=== PATIENT | male | born 1980 | race Hispanic/Latino ===

== ENCOUNTER 2024-08-23 16:56 | Emergency (ER) | payer OTHER ==
[~2024-08-23] VITALS: Ht 188 cm; Wt 113.4 kg
[2024-08-23] MEDS ORDERED: ONDANSETRON HCL 4 MG ORAL DISINTEGRATING TAB PO STA (18:30)
[2024-08-23] MEDS ORDERED: KETOROLAC TROMETHAMINE 60 MG/2 ML VIAL ONE (18:38)
[2024-08-23] MEDS: KETOROLAC TROMETHAMINE 60 MG/2 ML VIAL IM STA (18:43)
[2024-08-23 18:58] LABS: BILIRUBIN,URINE NEGATIVE (NEGATIVE); CLARITY,URINE SL CLOUDY (CLEAR); COLOR,URINE YELLOW (YELLOW); GLUCOSE, URINE NEGATIVE (NEGATIVE); KETONES,URINE NEGATIVE (NEGATIVE); LEUKOCYTE ESTERASE ,URINE NEGATIVE (NEGATIVE); NITRITE,URINE NEGATIVE (NEGATIVE); PH,URINE 7 (5 - 7); PROTEIN,URINE DIPSTICK >=300 (NEGATIVE); URINE UROBILINOGEN 0.2 mg/dL (0.2 - 1)
[2024-08-23 19:11] LABS: SPERM,URINE PRESENT
[2024-08-23 21:34] VITALS: PULSE 66; RESP 16; TEMP 98.4; O2SAT 100
[2024-08-23] MEDS ORDERED: ULTRAM 50MG50 MG PO (21:36)
== END 2024-08-23 21:38 | disposition home or self-care (01) ==
LOC: ER 17:55
DX: R10.31 Right lower quadrant pain (principal); N20.0 Calculus of kidney; R11.2 Nausea with vomiting, unspecified; K76.0 Fatty (change of) liver, not elsewhere classified; G47.30 Sleep apnea, unspecified
CPT/HCPCS: 74176; 81001; 99283; J1885